=== PATIENT | female | born 1960 | race Caucasian/White ===

== ENCOUNTER 2017-09-26 06:00 | Inpatient (IN) | payer BC ==
[2017-09-26] MEDS ORDERED: Bupivacaine HCl 0.5%/Epinephrine 1:200,000/PF 30 ml Vial ONE (06:17)
[2017-09-26] MEDS ORDERED: Sodium Chloride 0.9% 20 ML ONE (06:17)
[2017-09-26] MEDS ORDERED: Thrombin 5000 UNITS/5 ML VIAL ONE (06:17)
[2017-09-26 06:28] LABS: Hemoglobin 12.5 g/dL (12.0-16.0); Mean Corpuscular HGB CONC 32.8 g/dL (32.0-36.0); Mean Corpuscular Hemoglobin 27.2 pg (27.0-31.0); Mean Corpuscular Volume 82.8 fl (81.0-99.0); Mean Platelet Volume 7.3 fL (7.4-10.4); Platelet Count 278 thou/uL (130-400); RBC Distribution Width 12.6 % (11.5-14.5); Red Blood Cell (RBC) Count 4.61 mill/uL (4.20-5.40)
[2017-09-26 06:37] LABS: INR-International Normal Ratio 0.9; PTT 29.5 SEC (22.9-36.1); Prothrombin Time 12.2 SEC (12.0-14.7)
[2017-09-26] MEDS ORDERED: Midazolam HCl 2 mg/2 ml Vial ONE (06:42)
[2017-09-26] MEDS ORDERED: CEFAZOLIN/Water 2 GM/20 ML SYRINGE ONE (06:42)
--- NOTE | 2017-09-26 06:47 | HP ---
REASON FOR ADMISSION: Here for back surgery. HISTORY OF PRESENT ILLNESS: Bea Simmons is a very pleasant 56-year-old woman with left greater than right L5 radicular pain ever since a horse injury in 2011. Standing for more than 15 minutes exacerb ates the discomfort. In addition to the pain, there is numbness and weakness with prolonged standing . MR images show spondylolisthesis and stenosis at L4-5 for which she is here for surgical intervent ion. PAST MEDICAL HISTORY: Asthma/pulmonary disease, Chiari 1 malformation. PAST SURGICAL HISTORY: Cholecystectomy 2005, arm fracture surgery 2011, osteomyelitis with removal o f arm instrumentation 2012, C-sections in 1988 and 1985. MEDICATIONS: Nexium, Singulair, ProAir, pramipexole, Zanaflex. ALLERGIES: No known drug allergies. FAMILY HISTORY: No family history of significant spine disease. SOCIAL HISTORY: She works as a patent prosecution paralegal. She is a nonsmoker. She is . She has two c hildren. REVIEW OF SYSTEMS: Otherwise negative. PHYSICAL EXAMINATION: GENERAL: I am seeing Mrs. Simmons in the preoperative area. She is awake and alert. Her cognitive fu nction is normal for her age. Her receptive and expressive language functions are normal. NEURO: Cranial nerves are working well. Alternating rapid motions are performed rapidly and smoothl y. There is no lateralizing motor or sensory deficit. There is good strength in iliopsoas, quadrice ps, hamstrings, anterior tibia, EHL, and gastrocnemius. There is no permanent sensory loss in the lo wer extremities. The reflexes are hypoactive, but symmetric. The toes are downgoing. There is no c lonus. IMAGING FINDINGS: There is spondylolisthesis at L4-5 resulting in canal and foraminal stenosis. ASSESSMENT: Lumbar stenosis with lumbar spondylolisthesis with subluxation induced stenosis of both the spinal canal and the neural foramina. We are planning a decompression fusion at L4-L5. Informed consent was obtained in the office. All questions were answered this morning. We will take her to the operating room and anticipate a 1-2 night hospital stay afterwards.
[2017-09-26] MEDS ORDERED: Phenylephrine HCL 10 MG/ML VIAL ONE (06:50)
[2017-09-26] MEDS ORDERED: Albumin 5% 500 ML ONE (06:51)
[2017-09-26] MEDS ORDERED: Fentanyl 100 MCG/2 ML VIAL ONE ×3 (07:04→12:47)
[2017-09-26] MEDS ORDERED: Morphine Sulfate 2 MG/ML SYRINGE SLOW IVP PRN (10:30)
[2017-09-26] MEDS ORDERED: HYDROmorphone 2 MG/ML VIAL SLOW IVP PRN (10:30)
[2017-09-26] MEDS ORDERED: Ondansetron HCl/PF 4 MG/2 ML Vial IVP PRN ×2 (10:30→10:49)
[2017-09-26] MEDS ORDERED: Promethazine HCl 25 MG/ML VIAL SLOW IVP PRN (10:30)
[2017-09-26] MEDS ORDERED: Promethazine HCl 25 MG/ML VIAL IM PRN (10:30)
[2017-09-26] MEDS ORDERED: Meperidine HCl/PF 25 MG/ML VIAL SLOW IVP PRN (10:30)
[2017-09-26] MEDS ORDERED: Acetaminophen/Codeine 30-300mg Tablet PO PRN (10:49)
[2017-09-26] MEDS ORDERED: traMADol HCl 50 MG TAB PO PRN (10:49)
[2017-09-26] MEDS ORDERED: Promethazine 25 MG TAB PO PRN (10:49)
[2017-09-26] MEDS ORDERED: Promethazine HCl 12.5 MG SUPP PR PRN (10:49)
[2017-09-26] MEDS ORDERED: diphenhydrAMINE 25 MG CAP PO PRN (10:49)
[2017-09-26] MEDS ORDERED: Bisacodyl 10 MG SUPP PR PRN (10:49)
[2017-09-26] MEDS ORDERED: diphenhydrAMINE 50 MG/ML VIAL IVP PRN (10:49)
[2017-09-26] MEDS ORDERED: Milk Of Magnesia 30 ML UDCUP PO PRN (10:49)
[2017-09-26] MEDS ORDERED: HYDROmorphone 0.5 MG/0.5 ML SYRINGE ONE ×2 (11:05→11:39)
--- NOTE | 2017-09-26 11:48 | OP ---
DATE OF PROCEDURE: 09/26/2017 SURGEON: Jabari Andrea M.D. RELIGIOUS ACTIVITIES DIRECTOR: CHULA Calvo. PREOPERATIVE INDICATION: Treat pain, prevent neurological deterioration. PREOPERATIVE DIAGNOSES: L4-5 spondylolisthesis with L4-L5 foraminal stenosis and central canal steno sis. POSTOPERATIVE DIAGNOSIS: L4-L5 spondylolisthesis with L4-L5 foraminal stenosis and central canal zonia nosis. OPERATIVE PROCEDURE: Decompressive laminectomy, medial facetectomy, foraminotomy L4-L5, transforamin al lumbar interbody arthrodesis L4-L5, placement of intervertebral biomechanical device L4-L5, pedicl e screw and vito instrumentation L4-L5, posterolateral arthrodesis L4-L5, local morselized autograft, morselized allograft. PREOPERATIVE MEDICATION: Ancef 2 grams IV. DRAIN NUMBER: One. DRAIN TYPE: 10 Khmer Aubrey. OPERATIVE DICTATION: The patient was brought to the operating room. General endotracheal anesthesia was induced. The patient was positioned prone on the Bo frame with the chest and hips supporte d by the appropriate attachments for the Bo frame. A lateral fluoro radiograph was used to plan our incision. The lumbar skin was sterilely prepped and draped. We opened with a 10 blade knife an d controlled bleeding with bipolar and monopolar cautery. We used monopolar cautery to dissect throu gh subcutaneous tissues to the thoracodorsal fascia. We incised the fascia in the midline and reflec anirudh the paraspinal muscles off the spinous process and lamina of L4 and L5. We carried our dissectio n over the facet joints at L4-5 and L3-4 to identify the transverse processes of L4 and L5 bilaterall y. We took a lateral fluoro radiograph to confirm the levels upon which were operating. We removed the spinous process of L4 entirely and the superior portion of L5, using a Kerrison rongeur we fashio carlos our laminectomy. We widened our laminectomy defect until we were flush with L4 and L5 pedicles. We performed medial facetectomies and foraminotomies to ensure the exiting L4 and L5 nerve roots wer e decompressed on both sides. We turned our attention to arthrodesis. We removed the abnormal facet joint on the patient's left side in its entirety at L4-L5. This gave u s access to the intervertebral foramen and through the foramen, we accessed the disk. We incised the disk and removed disk contents using curettes and rongeurs. We prepared the endplates for grafting with curettes. We measured the height of the interspace with a bone rasp. We measured to 11 mm. An 11 mm PEEK intervertebral graft was brought into the field. Our laminectomy bone and our facetectom y bone was carefully cleaned of its soft tissue attachments on the back table, morselized into demine ralized bone matrix and this fusion substrate was packed into the PEEK graft. The PEEK graft was adv anced into the interspace under radiographic guidance to the appropriate depth. We turned our attent ion to pedicle screw instrumentation. Using bony anatomic landmarks, palpation of the medial portion of the pedicles, and a lateral fluoro radiograph as our guide, we chose entry points for our pedicle screws. We advanced a bone awl throug h the pedicles into the vertebral bodies. We tapped each trajectory. We used a ball probe to confir m each trajectory was completely encased in bone. We then placed 6.5 mm diameter screws in the pedic les of L4 and L5 bilaterally. We irrigated copiously with bacitracin irrigation. We brought rods do wn in the screw heads and tightened caps over the rods. Using a [id number] mechanism, we ensured adequate tightness. Before tightening, we applied a compressive force across the interspace to keep the interbody graft in place. We then irrigated the posterolateral recess. We decorticated the transverse process of L4 and L5 bilaterally and over the decorticated bone we left demineralized bone matrix and morselized autograft as are posterolateral fusion substrate. We then tunneled a drai n inferiorly through a separate stab incision. We irrigated the wound once again with bacitracin irr igation. We applied vancomycin powder to the wound. We closed the wound in anatomic layers over the drain. This was a clean case and no contamination.
[2017-09-26] MEDS ORDERED: Morphine 4 MG/ML VIAL ONE (13:15)
[2017-09-26] MEDS: Sodium Chloride 0.9% 1,000 ML IV SCH (14:15)
[2017-09-26] MEDS: traMADol HCl 50 MG TAB PO PRN (14:30)
[2017-09-26] MEDS: CEFAZOLIN/Water 2 GM/20 ML SYRINGE SLOW IVP SCH ×2 (14:30→21:35)
[2017-09-26 16:57] VITALS: BMI 34.3
[2017-09-26] MEDS: tiZANidine HCl 4 MG TAB PO PRN (17:27)
[2017-09-26] MEDS ORDERED: Metoclopramide HCl 10 MG/2 ML VIAL ONE (17:55)
[2017-09-26] MEDS ORDERED: Lidocaine 1% PF 5 ML VIAL ONE (17:55)
[2017-09-26] MEDS ORDERED: PROPOFOL 200 MG/20 ML VIAL ONE (17:55)
[2017-09-26] MEDS ORDERED: Ondansetron HCl/PF 4 MG/2 ML Vial ONE (17:55)
[2017-09-26] MEDS ORDERED: PHENYLEPHRINE-NS 100 MCG/ML 10 ML SYRINGE ONE (17:55)
[2017-09-26] MEDS ORDERED: Glycopyrrolate 0.2 MG/ML 5 ML SYRINGE ONE (17:55)
[2017-09-26] MEDS: Acetaminophen/Codeine 30-300mg Tablet PO PRN (22:35)
[2017-09-27] MEDS: Sodium Chloride 0.9% 1,000 ML IV SCH ×2 (03:20→14:49)
[2017-09-27] MEDS: Acetaminophen/Codeine 30-300mg Tablet PO PRN ×3 (03:23→13:10)
[2017-09-27] MEDS: tiZANidine HCl 4 MG TAB PO PRN ×3 (03:23→22:11)
[2017-09-27] MEDS: CEFAZOLIN/Water 2 GM/20 ML SYRINGE SLOW IVP SCH ×3 (06:35→22:11)
[2017-09-27] MEDS: traMADol HCl 50 MG TAB PO PRN ×2 (08:24→16:14)
--- NOTE | 2017-09-27 09:35 | PRG ---
DATE OF SERVICE: 09/27/2017 Ms. Simmons is 1 day out from decompression and fusion of lumbar spine for spondylolisthesis. The numb ness that, she used to get in her legs at night, is completely gone. Her legs feel like they are wor radha well. She was able to get out of bed and walk to the bathroom multiple times overnight. She rodriguez s a bit of urinary retention from anesthesia and pain medication. Recorded vital signs reveal a low-grade temperature of 100.3 as the T-max, other vital signs are stab le. She has good function in lower extremities. There is some drainage from the incision. The drai n tube in place is putting out a small amount. We will leave the drain in at least until noon to col lect any fluid from inside the fascia. We will mobilize aggressively, and once she is tolerating gen eral diet, voiding spontaneously, participating in all activities of daily living safely, and walking easily, then she can be discharged home. That can be as early as this afternoon if the drain is out and the final dose of antibiotic given.
[2017-09-27] MEDS: Promethazine HCl 25 MG/ML VIAL IM PRN ×2 (09:57→17:53)
[2017-09-27] MEDS ORDERED: Acetaminophen 500 MG TAB PO PRN (22:48)
[2017-09-27] MEDS: Acetaminophen 500 MG TAB PO PRN (23:09)
[2017-09-28] MEDS: Sodium Chloride 0.9% 1,000 ML IV SCH (04:15)
[2017-09-28] MEDS: Acetaminophen 500 MG TAB PO PRN (07:34)
[2017-09-28 08:24] VITALS: BP 146/83; TEMP 100.5
--- NOTE | 2017-09-28 09:09 | PRG ---
DATE OF SERVICE: 09/28/2017 NEUROSURGERY NOTE SUBJECTIVE: I saw Ms. Simmons this morning. Her main concern is low grade fever overnight. Otherwise , she is feeling well. The pain, weakness, and numbness in her legs were completely resolved. The b ack is sore. She has been wearing her brace when she is out of bed. The drain was removed yesterday . Recorded vital signs do show a T-max of 101.1 degrees Fahrenheit. Her neurological examination is re assuring. We are going to check a urinalysis and if it does not look terrible, she can be discharged today. Zainab carroll has been asked to stay with [place] and walk frequently when she gets home. We went over activity restrictions, wound care and followup arrangements. She verbalized understanding.
[2017-09-28 09:14] LABS: Bilirubin Negative (Negative); Blood, Urine Negative (Negative); Clarity CLEAR (Clear); Glucose, Urine (Dipstick) Negative (Negative); Leukocyte Negative (Negative); Nitrite Negative (Negative); Protein, Urine (Dipstick) Trace mg/dL (Neg-Trace); Specific Gravity, Urine 1.014 (1.002-1.036); Urobilinogen 0.2 mg/dL (0.2-1.0)
[2017-09-28 09:15] LABS: Bacteria/HPF None Seen HPF (None Seen); Hyaline Casts/LPF 0-3 HYALINE CAST LPF (0-3 Hyaline); Pathc Cast-AUWi Flag 0.43 (0-2.49); RBC/HPF 0-3 HPF (0-3); Squamous Epithelial 0-3 HPF (0-3); WBC/HPF 0-3 HPF (0-3)
== END 2017-09-28 12:20 | disposition home or self-care (01) | DRG 460 ==
LOC: SURG A 06:00
PROVIDERS: ADMIT Neurological Surgery; ATTEND Neurological Surgery
PROC: 0SG00AJ Fusion of Lumbar Vertebral Joint with Interbody Fusion Device, Posterior Approach, Anterior Column, Open Approach (ICD-10-PCS; principal; 2017-09-26)
PROC: 0ST20ZZ Resection of Lumbar Vertebral Disc, Open Approach (ICD-10-PCS; 2017-09-26)
PROC: 01NB0ZZ Release Lumbar Nerve, Open Approach (ICD-10-PCS; 2017-09-26)
DX: M43.16 Spondylolisthesis, lumbar region (principal); M48.062 Spinal stenosis, lumbar region with neurogenic claudication; M51.16 Intervertebral disc disorders with radiculopathy, lumbar region; J45.909 Unspecified asthma, uncomplicated; I10 Essential (primary) hypertension; G89.29 Other chronic pain; R50.9 Fever, unspecified
CPT/HCPCS: 36415; 76001; 81001; 85027; 85610; 85730; A4216; C1713; C1768; G8978-GP-CK; G8979-GP-CK; G8980-GP-CK; J0131; J0670; J1170; J2001; J2250; J2270; J2370; J2405; J2550; J2704; J2765; J3010; J3370; J3490; L0639; P9045

== ENCOUNTER 2020-01-25 07:26 | Outpatient (CLI) | payer BC, OTHER ==
[2020-01-25 14:10] LABS: Mean Corpuscular HGB CONC 32.9 g/dL (32.0-36.0); Mean Corpuscular Hemoglobin 26.1 pg (27.0-31.0); Mean Corpuscular Volume 79.5 fL (78.0-98.0); Mean Platelet Volume 8.2 fL (7.4-10.4); Platelet Count 342 thou/uL (130-400); RBC Distribution Width 13.1 % (11.5-14.5); Red Blood Cell (RBC) Count 4.59 mill/uL (4.20-5.40); White Blood Cell (WBC) Count 7.2 thou/uL (4.8-10.8)
[2020-01-25 14:22] LABS: INR-International Normal Ratio 0.9; PTT 27.5 sec (22.9-36.1); Prothrombin Time 12.3 sec (12.0-14.7)
[2020-01-26 11:55] LABS: SARS-CoV-2 MS2 Positive; SARS-CoV-2 N Gene Negative; SARS-CoV-2 S Gene Negative; SARS-CoV-2 by NAA Not Detected (NotDetected); SARS-CoV-2 orf1ab Negative
== END 2020-01-25 07:27 | disposition home or self-care (01) ==
LOC: LABBT 07:26
PROVIDERS: ATTEND Neurological Surgery
DX: Z01.812 Encounter for preprocedural laboratory examination (principal); Z20.828 Contact with and (suspected) exposure to other viral communicable diseases; M51.16 Intervertebral disc disorders with radiculopathy, lumbar region
CPT/HCPCS: 85027; 85610; 85730; 87635; U0003

== ENCOUNTER 2020-01-28 08:11 | Day surgery (SDC) | payer BC ==
[2020-01-26 12:02] VITALS: BMI 39.3
[2020-01-28 09:32] LABS: Anion Gap 16 mmol/L (10-20); BUN (Urea Nitrogen) 19 mg/dL (9.8-20.1); Calc. Creatinine Clearance 126 mL/min (70-130); Carbon Dioxide 22 mmol/L (22-29); Chloride 103 mmol/L (98-107); Estimated GFR-MDRD 75; Glucose 98 mg/dL (70-105); Potassium 4.1 mmol/L (3.5-5.1); Sodium 137 mmol/L (136-145)
[2020-01-28] MEDS ORDERED: Glycopyrrolate 0.2 MG/ML 5 ML SYRINGE ONE (10:39)
[2020-01-28] MEDS ORDERED: Rocuronium Bromide 10 MG/ML (10ML VIAL) ONE (10:39)
[2020-01-28] MEDS ORDERED: PROPOFOL 200 MG/20 ML VIAL ONE (10:39)
[2020-01-28] MEDS ORDERED: EPHEDRINE 25 MG/5 ML SYRINGE ONE (10:39)
[2020-01-28] MEDS ORDERED: Lidocaine 1% PF 5 ML VIAL ONE (10:39)
[2020-01-28] MEDS ORDERED: Dexamethasone 20 MG/5 ML VIAL ONE (10:39)
[2020-01-28] MEDS ORDERED: Ondansetron PF 4 MG/2 ML Vial ONE (10:39)
[2020-01-28] MEDS ORDERED: Ketorolac Tromethamine 30 MG/ML VIAL ONE (10:39)
[2020-01-28] MEDS ORDERED: PHENYLEPHRINE-NS 100 MCG/ML 10 ML SYRINGE ONE (10:39)
[2020-01-28] MEDS ORDERED: Bupivacaine HCl 0.5%/Epinephrine 1:200,000/PF 30 ml Vial ONE (10:53)
[2020-01-28] MEDS ORDERED: Thrombin 5000 UNITS/5 ML VIAL ONE (10:53)
[2020-01-28] MEDS ORDERED: Ketamine 50 MG/ML (10ML VIAL) ONE (11:26)
[2020-01-28] MEDS ORDERED: Fentanyl 100 MCG/2 ML VIAL ONE ×3 (11:34→14:52)
[2020-01-28] MEDS ORDERED: diphenhydrAMINE 25 MG CAP PO PRN (13:41)
[2020-01-28] MEDS ORDERED: Promethazine 25 MG TAB PO PRN (13:41)
[2020-01-28] MEDS ORDERED: Promethazine HCl 25 MG/ML VIAL IM PRN (13:41)
[2020-01-28] MEDS ORDERED: diphenhydrAMINE 50 MG/ML VIAL IVP PRN (13:41)
[2020-01-28] MEDS ORDERED: Promethazine HCl 12.5 MG SUPP PR PRN (13:41)
[2020-01-28] MEDS ORDERED: Acetaminophen 650 MG Suppository PR PRN (13:41)
[2020-01-28] MEDS ORDERED: Ondansetron PF 4 MG/2 ML Vial IVP PRN (13:41)
[2020-01-28] MEDS ORDERED: Acetaminophen 325 MG TAB PO PRN (13:41)
[2020-01-28] MEDS ORDERED: Acetaminophen/Codeine 30-300mg Tablet PO PRN ×2 (13:41)
[2020-01-28] MEDS ORDERED: tiZANidine HCl 4 MG TAB PO PRN (13:41)
[2020-01-28] MEDS ORDERED: Sodium Chloride 0.9% 1,000 ML IV SCH (13:45)
[2020-01-28] MEDS ORDERED: Scopolamine 1.5 mg/72 hour Patch TD SCH (13:45)
[2020-01-28] MEDS ORDERED: CEFAZOLIN 2 GM in Premix Bag 1 BAG IVPB SCH (13:45)
[2020-01-28] MEDS ORDERED: Acetaminophen/Codeine 30-300mg Tablet ONE (16:25)
--- NOTE | 2020-01-28 20:06 | OP ---
DATE OF PROCEDURE: 01/28/2020 FIELD RADIO OPERATOR: None. PREOPERATIVE INDICATION: Treat pain and prevent neurological deterioration. PREOPERATIVE DIAGNOSES: Large intervertebral disk herniation, right L5-S1 with right S1 radiculopathy and prior L4-L5 decompression and fusion. POSTOPERATIVE DIAGNOSES: Large intervertebral disk herniation, right L5-S1 with right S1 radiculopathy and prior L4-L5 decompression and fusion. OPERATIVE PROCEDURES: Reopening of lumbar incision; decompressive laminectomy with medial facetectomy and foraminotomy, L5-S1; right-sided microdiskectomy, L5-S1; operating microscope. PREOPERATIVE MEDICATIONS: Ancef 2 g IV. DRAIN NUMBER: Zero. DRAIN TYPE: None. DESCRIPTION OF PROCEDURE: The patient was brought to the operating room. General endotracheal anesthesia was induced. The patient was positioned prone with her chest and hips supported by gel-filled chest rolls. A lateral fluoro radiograph was used to plan our incision. We only needed a small portion of her previous incision. The lumbar skin was sterilely prepped and draped. We opened our planned incision with a 10 blade knife and we controlled bleeding with bipolar and monopolar cautery. We used monopolar cautery to dissect through subcutaneous tissues and scar tissue to the thoracodorsal fascia. We incised the fascia in the midline and reflected the paraspinal muscles off the spinous process and lamina of L5 and S1. A self-retaining retractor was placed and a lateral fluoro radiograph confirmed the levels upon which we were operating. We then carefully fashioned a laminectomy at L5 and S1 with 2 and 3 mm Kerrison rongeurs. The dura was tightly stretched under the lamina on the right side at L5-S1 and under the facet joint. The operative microscope was brought into the field to finish a laminectomy. We did this very carefully by decompressing both lateral recesses with medial facetectomies. We identified the S1 nerve roots. We performed foraminotomies over those. In the right lateral recess just above the pedicle at S1 was a very large intervertebral disk herniation. With a blunt hook, we removed a huge fragment of intervertebral disk herniation stretching the S1 nerve root and the thecal sac. With the disk out of the way, there was no further stretch in the nerve and it looked regained its normal course across the lumbosacral interspace and out the foramen. We probed into the disk space to see if there were any more loose fragments of disk. Small fragments were removed, but the majority of the remainder of the disk was densely adherent to the endplates and we left that in place. We irrigated once again with bacitracin irrigation. We infused local anesthetic in the paraspinal muscles. We treated the wound with vancomycin powder and we closed it in anatomical layers. This was a clean case, no contamination. Job ID: [id number]
--- NOTE | 2020-01-30 08:55 | EKG ---
Test Reason : PREOP Blood Pressure : / mmHG Vent. Rate : 068 BPM Atrial Rate : 068 BPM P-R Int : 138 ms QRS Dur : 088 ms QT Int : 392 ms P-R-T Axes : 072 013 042 degrees QTc Int : 416 ms Normal sinus rhythm Minimal voltage criteria for LVH, may be normal variant Borderline ECG No previous ECGs available Confirmed by DR. Sweta BARAKAT ([id number]) on 01/30/2020 8:55:05 AM Referred By: GLO Confirmed By:DR. Sweta BARAKAT
== END 2020-01-28 16:45 | disposition home or self-care (01) ==
LOC: SDC 08:11
PROVIDERS: ATTEND Neurological Surgery
PROC: 0ST20ZZ Resection of Lumbar Vertebral Disc, Open Approach (ICD-10-PCS; principal; 2020-01-28)
PROC: 01NB0ZZ Release Lumbar Nerve, Open Approach (ICD-10-PCS; principal; 2020-01-28)
DX: M51.17 Intervertebral disc disorders with radiculopathy, lumbosacral region (principal); Z79.82 Long term (current) use of aspirin; Z79.899 Other long term (current) drug therapy
CPT/HCPCS: 76000; 80048; 93005; 93010; J0690; J1100; J1885; J2405; J2704; J3010; J3370; J3490

== ENCOUNTER 2020-08-22 11:54 | Outpatient (CLI) | payer BC ==
[2020-08-22 13:42] LABS: Hemoglobin 11.3 g/dL (12.0-15.5); Mean Corpuscular HGB CONC 30.5 g/dL (32.0-36.0); Mean Corpuscular Hemoglobin 23.5 pg (27.0-33.0); Mean Corpuscular Volume 76.9 fl (81.6-98.3); Mean Platelet Volume 10.2 fl (7.4-10.4); Platelet Count 422 10x3/uL (150-450); RBC Distribution Width 15.6 % (11.5-14.5); Red Blood Cell (RBC) Count 4.81 10x6/uL (3.90-5.03); White Blood Cell (WBC) Count 7.7 10x3/uL (3.5-10.5)
[2020-08-22 14:29] LABS: Anion Gap 16 mmol/L (10-20); BUN (Urea Nitrogen) 14 mg/dL (9.8-20.1); Calc. Creatinine Clearance 0 mL/min (70-130); Calcium 9.2 mg/dL (7.8-10.44); Carbon Dioxide 26 mmol/L (23-31); Chloride 102 mmol/L (98-107); Glucose 75 mg/dL (80-115); Potassium 4.3 mmol/L (3.5-5.1); Sodium 140 mmol/L (136-145)
[2020-08-22 14:43] LABS: PTT 25.8 sec (22.0-33.0); Prothrombin Time 10.6 sec (9.5-12.1)
[2020-08-23 01:16] LABS: SARS-CoV-2 PCR by NAA Not Detected (NotDetected)
== END 2020-08-22 11:55 | disposition home or self-care (01) ==
LOC: LABBT 11:54
PROVIDERS: ATTEND Neurological Surgery
DX: Z01.818 Encounter for other preprocedural examination (principal); M51.27 Other intervertebral disc displacement, lumbosacral region; Z20.822 Contact with and (suspected) exposure to COVID-19
CPT/HCPCS: 80048; 85027; 85610; 85730; 87635; 93005; 93010; U0003; U0005

== ENCOUNTER 2020-08-25 05:39 | Day surgery (SDC) | payer BC ==
[2020-08-24 11:29] VITALS: BMI 39.9
[2020-08-25] MEDS ORDERED: Bupivacaine PF 0.5% 30 ML VIAL ONE (06:10)
[2020-08-25] MEDS ORDERED: Thrombin 5000 UNITS/5 ML VIAL ONE (06:10)
[2020-08-25] MEDS ORDERED: EPINEPHrine 1 MG/ML AMP ONE (06:10)
[2020-08-25] MEDS ORDERED: Midazolam HCl 2 mg/2 ml Vial ONE (06:29)
[2020-08-25] MEDS ORDERED: Famotidine/PF 20 mg/2ml Vial ONE (06:30)
[2020-08-25] MEDS ORDERED: SUGAMMADEX SODIUM 200 MG/2 ML VIAL ONE (06:41)
[2020-08-25] MEDS ORDERED: Fentanyl 100 MCG/2 ML VIAL ONE ×3 (06:51→11:19)
[2020-08-25] MEDS ORDERED: HYDROmorphone 2 MG/ML VIAL ONE (06:52)
[2020-08-25] MEDS ORDERED: PHENYLEPHRINE-NS 100 MCG/ML 10 ML SYRINGE ONE (07:10)
[2020-08-25] MEDS ORDERED: ePHEDrine Sulfate 50 MG/10 ML VIAL ONE (07:10)
[2020-08-25] MEDS ORDERED: Rocuronium Bromide 10 MG/ML (10ML VIAL) ONE (07:10)
[2020-08-25] MEDS ORDERED: PROPOFOL 200 MG/20 ML VIAL ONE (07:10)
[2020-08-25] MEDS ORDERED: Dexamethasone 20 MG/5 ML VIAL ONE (07:10)
[2020-08-25] MEDS ORDERED: Ondansetron PF 4 MG/2 ML Vial ONE (07:10)
[2020-08-25] MEDS ORDERED: Lidocaine 1% PF 5 ML VIAL ONE (07:10)
[2020-08-25] MEDS ORDERED: Vecuronium 10 MG VIAL ONE (07:10)
[2020-08-25] MEDS ORDERED: Meperidine HCl/PF 25 MG/ML VIAL SLOW IVP PRN (07:45)
[2020-08-25] MEDS ORDERED: Promethazine HCl 25 MG/ML VIAL SLOW IVP PRN (07:45)
[2020-08-25] MEDS ORDERED: Promethazine HCl 25 MG/ML VIAL IM PRN ×2 (07:45→10:47)
[2020-08-25] MEDS ORDERED: Ondansetron HCl/PF 4 MG/2 ML Vial IVP PRN (07:45)
[2020-08-25] MEDS ORDERED: HYDROmorphone 2 MG/ML VIAL SLOW IVP PRN (07:45)
[2020-08-25] MEDS ORDERED: diphenhydrAMINE 50 MG/ML VIAL IVP PRN (10:47)
[2020-08-25] MEDS ORDERED: Acetaminophen/Codeine 30-300mg Tablet PO PRN ×2 (10:47)
[2020-08-25] MEDS ORDERED: Promethazine HCl 12.5 MG SUPP PR PRN (10:47)
[2020-08-25] MEDS ORDERED: Ondansetron PF 4 MG/2 ML Vial IVP PRN (10:47)
[2020-08-25] MEDS ORDERED: tiZANidine HCl 4 MG TAB PO PRN (10:47)
[2020-08-25] MEDS ORDERED: Promethazine 25 MG TAB PO PRN (10:47)
[2020-08-25] MEDS ORDERED: diphenhydrAMINE 25 MG CAP PO PRN (10:47)
[2020-08-25] MEDS ORDERED: Scopolamine 1.5 mg/72 hour Patch TD SCH (11:00)
[2020-08-25] MEDS ORDERED: Morphine 4 MG/ML VIAL SLOW IVP PRN (11:00)
[2020-08-25] MEDS ORDERED: Sodium Chloride 0.9% 1,000 ML IV SCH (11:00)
[2020-08-25] MEDS ORDERED: HYDROcodone/Acetaminophen 5/325 mg Tablet ONE (13:25)
[2020-08-25] MEDS ORDERED: CEFAZOLIN 2 GM in Premix Bag 1 BAG IVPB SCH (15:00)
== END 2020-08-25 14:28 | disposition home or self-care (01) ==
LOC: SDC 05:39
PROVIDERS: ATTEND Neurological Surgery
PROC: 01NB0ZZ Release Lumbar Nerve, Open Approach (ICD-10-PCS; principal; 2020-08-25)
DX: M51.17 Intervertebral disc disorders with radiculopathy, lumbosacral region (principal); J45.909 Unspecified asthma, uncomplicated; Z79.82 Long term (current) use of aspirin; Z79.899 Other long term (current) drug therapy
CPT/HCPCS: 76000; J0171; J0690; J1100; J1170; J2250; J2405; J2704; J3010; J3370; J3490; S0020; S0028

== ENCOUNTER 2023-01-24 09:44 | Outpatient (CLI) | payer BC ==
[2023-01-24 12:14] LABS: Hematocrit 39.1 % (34.9-44.5); Hemoglobin 11.9 g/dL (12.0-15.5); Mean Corpuscular HGB CONC 30.4 g/dL (32.0-36.0); Mean Corpuscular Hemoglobin 22.8 pg (27.0-33.0); Platelet Count 419 10x3/uL (150-450); RBC Distribution Width 23.2 % (11.5-14.5); Red Blood Cell (RBC) Count 5.21 10x6/uL (3.90-5.03); White Blood Cell (WBC) Count 7.6 10x3/uL (3.5-10.5)
[2023-01-24 12:34] LABS: INR-International Normal Ratio 0.9; PTT 28.8 sec (22.0-33.0); Prothrombin Time 10.2 sec (9.5-12.1)
== END 2023-01-24 09:45 | disposition home or self-care (01) ==
LOC: LABBT 09:44
PROVIDERS: ATTEND Neurological Surgery
DX: Z01.818 Encounter for other preprocedural examination (principal); M54.17 Radiculopathy, lumbosacral region; M99.03 Segmental and somatic dysfunction of lumbar region; Z98.1 Arthrodesis status
CPT/HCPCS: 85027; 85610; 85730; 93005; 93010

== ENCOUNTER 2023-01-24 10:00 | Inpatient (IN) | payer BC ==
[2023-01-24 11:00] VITALS: BMI 38.9
[2023-01-28] MEDS ORDERED: Bupivacaine PF 0.5% 30 ML VIAL ONE (06:10)
[2023-01-28] MEDS ORDERED: EPINEPHrine 1 MG/ML AMP ONE (06:10)
[2023-01-28] MEDS ORDERED: Thrombin 5000 UNITS/5 ML VIAL ONE (06:10)
[2023-01-28] MEDS ORDERED: Vancomycin 1 GM VIAL ONE (06:10)
[2023-01-28] MEDS ORDERED: Dexmedetomidine 200 MCG/2 ML VIAL ONE (06:43)
[2023-01-28] MEDS ORDERED: fentaNYL PF 100 MCG/2 ML SYRINGE ONE (06:43)
[2023-01-28] MEDS ORDERED: Morphine 2 MG/ML VIAL SLOW IVP PRN (06:46)
[2023-01-28] MEDS ORDERED: Prochlorperazine 10 MG/2 ML VIAL IM PRN (06:46)
[2023-01-28] MEDS ORDERED: Acetaminophen 325 MG TAB PO PRN (06:46)
[2023-01-28] MEDS ORDERED: Mag-Al 1200 mg/1200 mg/30 ML UDCUP PO PRN (06:46)
[2023-01-28] MEDS ORDERED: HYDROcodone/Acetaminophen 7.5/325 mg Tablet PO PRN (06:46)
[2023-01-28] MEDS ORDERED: diphenhydrAMINE 50 MG/ML VIAL IVP PRN (06:46)
[2023-01-28] MEDS ORDERED: Milk Of Magnesia 30 ML UDCUP PO PRN (06:46)
[2023-01-28] MEDS ORDERED: Hydrochlorothiazide 25 MG TAB PO PRN (06:49)
[2023-01-28] MEDS ORDERED: Losartan 25 MG TAB PO PRN (07:08)
[2023-01-28 07:15] LABS: Anion Gap 13 mmol/L (10-20); BUN (Urea Nitrogen) 11 mg/dL (9.8-20.1); Calc. Creatinine Clearance 122 mL/min (70-130); Calcium 9.3 mg/dL (7.8-10.44); Carbon Dioxide 26 mmol/L (23-31); Chloride 105 mmol/L (98-107); Estimated GFR 87; Glucose 104 mg/dL (80-115); Potassium 3.9 mmol/L (3.5-5.1); Sodium 140 mmol/L (136-145)
[2023-01-28] MEDS ORDERED: CEFAZOLIN 2 GM VIAL ONE (07:17)
[2023-01-28] MEDS ORDERED: Sodium Chloride 0.9% 100 ML ONE (07:17)
[2023-01-28] MEDS ORDERED: PROPOFOL 200 MG/20 ML VIAL ONE (07:40)
[2023-01-28] MEDS ORDERED: Labetalol HCl 100 MG/20 ML VIAL ONE (07:40)
[2023-01-28] MEDS ORDERED: Ondansetron PF 4 MG/2 ML Vial ONE (07:40)
[2023-01-28] MEDS ORDERED: Lidocaine 1% PF 5 ML VIAL ONE (07:40)
[2023-01-28] MEDS ORDERED: ePHEDrine Sulfate 50 MG/10 ML VIAL ONE (07:40)
[2023-01-28] MEDS ORDERED: Rocuronium Bromide 10 MG/ML (10ML VIAL) ONE (07:40)
[2023-01-28] MEDS ORDERED: Vecuronium 10 MG VIAL ONE (07:40)
[2023-01-28] MEDS ORDERED: Dexamethasone 20 MG/5 ML VIAL ONE (07:40)
[2023-01-28] MEDS ORDERED: HYDROmorphone 2 MG/ML VIAL ONE (09:46)
[2023-01-28] MEDS ORDERED: SUGAMMADEX SODIUM 200 MG/2 ML VIAL ONE (11:57)
[2023-01-28] MEDS ORDERED: fentaNYL 50 mcg/mL 1 mL Vial ONE ×5 (12:54→14:24)
[2023-01-28] MEDS ORDERED: HYDROmorphone 2 MG/ML VIAL SLOW IVP PRN (12:55)
[2023-01-28] MEDS ORDERED: Promethazine HCl 25 MG/ML VIAL IM PRN (12:55)
[2023-01-28] MEDS ORDERED: Ondansetron HCl/PF 4 MG/2 ML Vial IVP PRN (12:55)
[2023-01-28] MEDS: CEFAZOLIN 2 GM in Sodium Chloride 0.9% 100 ML IVPB SCH ×2 (15:24→22:22)
[2023-01-28] MEDS: Ondansetron PF 4 MG/2 ML Vial IVP PRN (15:24)
[2023-01-28] MEDS: Sodium Chloride 0.9% 1,000 ML IV SCH (15:34)
[2023-01-28] MEDS: Gabapentin 300 MG CAP PO SCH ×3 (15:34→19:59)
[2023-01-28] MEDS ORDERED: Gabapentin 300 MG CAP PO SCH (17:00)
[2023-01-28] MEDS: HYDROcodone/Acetaminophen 10/325 mg Tablet PO PRN (17:33)
[2023-01-28] MEDS: tiZANidine HCl 4 MG TAB PO PRN (19:59)
[2023-01-28] MEDS: Pramipexole Di-HCl 0.25 MG TAB PO SCH (20:00)
[2023-01-28] MEDS: Albuterol 200 PUFF (6.7GM INHALER) INH PRN (22:23)
[2023-01-29] MEDS: HYDROcodone/Acetaminophen 10/325 mg Tablet PO PRN (04:01)
[2023-01-29] MEDS: tiZANidine HCl 4 MG TAB PO PRN ×3 (05:36→20:45)
[2023-01-29] MEDS: Sodium Chloride 0.9% 1,000 ML IV SCH ×2 (05:37→11:37)
[2023-01-29 05:48] LABS: #Monocytes 0.9 thou/uL (0.11-0.59); #Neutrophils 6.8 thou/uL (1.40-6.50); %Basophils 0.2 % (0.0-1.0); %Lymphocytes 21.5 % (21.0-51.0); Hematocrit 31.1 % (36.0-47.0); Hemoglobin 9.3 g/dL (12.0-16.0); Mean Corpuscular HGB CONC 29.9 g/dL (32.0-36.0); Mean Corpuscular Hemoglobin 23.3 pg (27.0-31.0); Mean Corpuscular Volume 77.9 fl (78.0-98.0); Mean Platelet Volume 9.9 fL (7.4-10.4); Platelet Count 281 10x3/uL (130-400); RBC Distribution Width 22.4 % (11.5-14.5); Red Blood Cell (RBC) Count 3.99 mill/uL (4.20-5.40); White Blood Cell (WBC) Count 9.8 10x3/uL (4.8-10.8)
[2023-01-29 06:20] LABS: Anion Gap 9 mmol/L (10-20); BUN (Urea Nitrogen) 8 mg/dL (9.8-20.1); Calc. Creatinine Clearance 122 mL/min (70-130); Calcium 8.4 mg/dL (7.8-10.44); Carbon Dioxide 29 mmol/L (23-31); Chloride 104 mmol/L (98-107); Estimated GFR 87; Glucose 110 mg/dL (80-115); Potassium 3.6 mmol/L (3.5-5.1); Sodium 138 mmol/L (136-145)
[2023-01-29] MEDS: Acetaminophen/Codeine 30-300mg Tablet PO PRN ×3 (09:29→18:42)
[2023-01-29] MEDS: Albuterol 200 PUFF (6.7GM INHALER) INH PRN ×2 (12:17→21:19)
[2023-01-29 15:42] LABS: #Eosinphils 0.1 thou/uL (0.0-0.7); #Monocytes 0.5 thou/uL (0.11-0.59); #Neutrophils 5.7 thou/uL (1.40-6.50); %Basophils 0.4 % (0.0-1.0); %Eosinophils 0.9 % (0.0-10.0); %Lymphocytes 25.1 % (21.0-51.0); %Monocytes 6.3 % (0.0-10.0); %Neutrophils 66.8 % (42.0-75.0); Hematocrit 32.7 % (36.0-47.0); Hemoglobin 9.7 g/dL (12.0-16.0); Mean Corpuscular HGB CONC 29.7 g/dL (32.0-36.0); Mean Corpuscular Hemoglobin 23.4 pg (27.0-31.0); Mean Platelet Volume 9.8 fL (7.4-10.4); Platelet Count 279 10x3/uL (130-400); RBC Distribution Width 22.7 % (11.5-14.5); Red Blood Cell (RBC) Count 4.14 mill/uL (4.20-5.40); White Blood Cell (WBC) Count 8.5 10x3/uL (4.8-10.8)
[2023-01-29] MEDS: Gabapentin 300 MG CAP PO SCH ×2 (17:29→18:42)
[2023-01-29 17:45] LABS: Bacteria/HPF None Seen HPF (None Seen); Bilirubin Negative (Negative); Blood, Urine Negative (Negative); CAUTI Indications for Culture Fever or rigors; Clarity Clear (Clear); Glucose, Urine (Dipstick) Normal (Negative); Ketone, Urine Negative (Negative); Leukocyte Negative Leu/uL (Negative); Nitrite Negative (Negative); Protein, Urine (Dipstick) Negative (Neg-Trace); RBC/HPF 0-3 HPF (0-3); Specific Gravity, Urine 1.012 (1.002-1.036); Squamous Epithelial 0-3 HPF (0-3); Urobilinogen Normal mg/dL (Less than 2); WBC/HPF 0-3 HPF (0-3); pH, Urine 5.5 (5.0-9.0)
[2023-01-29 18:02] LABS: Urine Culture Reflex No No
[2023-01-29] MEDS: Pramipexole Di-HCl 0.25 MG TAB PO SCH (20:45)
[2023-01-29] MEDS ORDERED: Gabapentin 300 MG CAP PO SCH (21:00)
[2023-01-30] MEDS: Acetaminophen/Codeine 30-300mg Tablet PO PRN ×2 (00:08→10:05)
[2023-01-30] MEDS: Ondansetron PF 4 MG/2 ML Vial IVP PRN (01:33)
[2023-01-30] MEDS: Sodium Chloride 0.9% 1,000 ML IV SCH (02:41)
[2023-01-30 07:54] VITALS: BP 143/74
[2023-01-30] MEDS: tiZANidine HCl 4 MG TAB PO PRN (10:06)
[2023-01-30 11:53] VITALS: TEMP 98.8
[2023-01-31] MEDS ORDERED: FLU VACC QS2023-24(6MOS UP)/PF 60 MCG/0.5 ML SYRINGE IM ONE (09:00)
== END 2023-01-30 11:22 | disposition home or self-care (01) | DRG 455 ==
LOC: SURG A 01-28 05:39
PROVIDERS: ADMIT Neurological Surgery; ATTEND Neurological Surgery
PROC: 01NB0ZZ Release Lumbar Nerve, Open Approach (ICD-10-PCS; principal; 2023-01-28)
PROC: 0SG30AJ Fusion of Lumbosacral Joint with Interbody Fusion Device, Posterior Approach, Anterior Column, Open Approach (ICD-10-PCS; 2023-01-28)
PROC: 0SG0071 Fusion of Lumbar Vertebral Joint with Autologous Tissue Substitute, Posterior Approach, Posterior Column, Open Approach (ICD-10-PCS; 2023-01-28)
PROC: 01NR0ZZ Release Sacral Nerve, Open Approach (ICD-10-PCS; 2023-01-28)
PROC: 0SB40ZZ Excision of Lumbosacral Disc, Open Approach (ICD-10-PCS; 2023-01-28)
PROC: 0SP304Z Removal of Internal Fixation Device from Lumbosacral Joint, Open Approach (ICD-10-PCS; 2023-01-28)
DX: M51.17 Intervertebral disc disorders with radiculopathy, lumbosacral region (principal); J45.909 Unspecified asthma, uncomplicated; Z90.49 Acquired absence of other specified parts of digestive tract; Z98.1 Arthrodesis status; Z98.890 Other specified postprocedural states; Z79.899 Other long term (current) drug therapy; M43.17 Spondylolisthesis, lumbosacral region; Z88.1 Allergy status to other antibiotic agents
CPT/HCPCS: 36415; 71046; 80048; 81001; 85025; 86850; 86900; 86901; 87086; 93970; A4314; C1713; C1889; J0171; J0780; J1100; J1170; J2405; J2704; J3010; J3370; J3490; J7050; S0020